=== PATIENT | male | born 1945 | race Caucasian/White ===

== ENCOUNTER → 2016-10-03 | Outpatient (CLI) | payer OTHER ==
[2016-10-03 17:25] LABS: BLOOD UREA NITROGEN 31 mg/dL (7-22); CALCIUM 9.5 mg/dL (8.7-10.7); CHLORIDE 94 meq/L (98-112); GLUCOSE 125 mg/dL (78-110); POTASSIUM 4.9 meq/L (3.8-5.2); SODIUM 135 meq/L (135-145)
== END ==
LOC: MOB LAB 16:09
PROVIDERS: ATTEND Internal Medicine
DX: I99.8 Other disorder of circulatory system (principal)
CPT/HCPCS: 36415; 80048; 99214

== ENCOUNTER → 2016-10-25 | Outpatient (CLI) | payer OTHER ==
[2016-10-25 08:42] LABS: CALCIUM 9.5 mg/dL (8.7-10.7); CREATININE 1.5 mg/dL (0.70-1.50)
== END ==
LOC: LAB 08:07
PROVIDERS: ATTEND Internal Medicine
DX: R79.89 Other specified abnormal findings of blood chemistry (principal); R23.0 Cyanosis
CPT/HCPCS: 36415; 80048

== ENCOUNTER → 2016-12-29 | Outpatient (CLI) | payer OTHER ==
[2016-12-29 16:47] LABS: CREATININE, URINE 75.7 MG/DL (15-500)
== END ==
LOC: LAB 16:10
PROVIDERS: ATTEND Internal Medicine
DX: E11.9 Type 2 diabetes mellitus without complications (principal)
CPT/HCPCS: 36415; 82043; 83036

== ENCOUNTER → 2017-02-21 | Outpatient (CLI) | payer OTHER | LOC: MMPC 11:11 | PROVIDERS: ATTEND Internal Medicine | DX: E11.9 Type 2 diabetes mellitus without complications (principal); E78.5 Hyperlipidemia, unspecified; D64.9 Anemia, unspecified; G62.9 Polyneuropathy, unspecified; R41.3 Other amnesia | CPT/HCPCS: 99214; G0463 ==